=== PATIENT | male | born 1995 | race Hispanic/Latino ===

== ENCOUNTER 2020-03-11 21:39 | Emergency (ER) | payer SELFPAY ==
[2020-03-11 21:57] VITALS: TEMP 97.8; O2SAT 98
[2020-03-11] MEDS ORDERED: SODIUM CHLORIDE 0.9% 1000ML 1,000 ML IVS ONE (22:10)
[2020-03-11] MEDS ORDERED: PROMETHAZINE HCL INJ 25 MG in SODIUM CHLORIDE 0.9% 50ML 50 ML IVPB ONE (22:10)
[2020-03-11 23:36] VITALS: BP 120/81
--- NOTE | 2020-03-11 23:38 | ED.PDOC ---
History of Present Illness - General Chief Complaint: GI Problem Stated Complaint: nausea,vomiting Time Seen by Provider: 03/11/20 21:43 Source: patient Exam Limitations: no limitations - History of Present Illness Initial Comments: The patient is a 25-year-old male presented emergency room secondary to 3 to 4 days of nausea vomiting and mild diarrhea. No real abdominal pain. No fever. No vomiting of blood. No trauma. He has not been around anyone with similar symptoms. No history of any chronic intestinal issues. No history of chronic reflux. Timing/Duration: other Severity: moderate Improving Factors: nothing Worsening Factors: eating Associated Symptoms: loss of appetite, malaise, nausea/vomiting Allergies/Adverse Reactions: Allergies NO KNOWN ALLERGY Allergy (Unverified 12/03/14 21:48) Home Medications: Ambulatory Orders Ondansetron Odt [Zofran ODT] 4 mg PO Q8HR PRN #5 tab 03/11/20 Review of Systems - Review of Systems Constitutional: States: malaise EENTM: States: no symptoms reported Respiratory: States: no symptoms reported Cardiology: States: no symptoms reported Gastrointestinal/Abdominal: States: diarrhea, nausea, vomiting Genitourinary: States: no symptoms reported Musculoskeletal: States: no symptoms reported Skin: States: no symptoms reported Neurological: States: no symptoms reported Endocrine: States: no symptoms reported All other Systems: No Change from Baseline Past Medical History (General) - Patient Medical History Hx Seizures: No Hx Stroke: No Hx Dementia: No Hx Asthma: No Hx of COPD: No Hx Cardiac Disorders: No Hx Congestive Heart Failure: No Hx Pacemaker: No Hx Hypertension: No Hx Thyroid Disease: No Hx Diabetes: No Hx Gastroesophageal Reflux: No Hx Renal Disease: No Hx Cancer: No Hx of HIV: No Hx Hepatitis C: No Hx MRSA: No Surgical History: no surgical history - Vaccination History Hx Tetanus, Diphtheria Vaccination: Yes Hx Influenza Vaccination: No Hx Pneumococcal Vaccination: No - Social History Hx Tobacco Use: Yes Hx Chewing Tobacco Use: No Hx Alcohol Use: Yes Hx Substance Use: No Hx Substance Use Treatment: No Hx Depression: No Feels Threatened In Home Enviroment: No Feels Threatened In a Relationship: No Hx Physical Abuse: No Hx Emotional Abuse: No Hx Suspected Abuse: No - Triage Comment ED Triage Comment: The patient complained of nausea and vomiting for the past day and had chronic back pain for the past month. He did not appear in distsress but complained of feeling anxious. He denied shortness of breath and abdominal pain. He had no other noted complaints at the time of assessment. Family Medical History - Family History Mother Living Status: Still Living Physical Exam - Physical Exam General Appearance: Alert, Comfortable, No apparent distress Eye Exam: bilateral normal Ears, Nose, Throat: hearing grossly normal, normal pharynx Neck: full range of motion, supple Respiratory: lungs clear, normal breath sounds, no respiratory distress, no accessory muscle use Cardiovascular/Chest: normal peripheral pulses, regular rate, rhythm, no edema Peripheral Pulses: radial,right: 2+, radial,left: 2+ Gastrointestinal/Abdominal: non tender, soft Rectal Exam: deferred Back Exam: normal inspection Extremity: normal range of motion, no pedal edema, normal capillary refill 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, alert, normal mood/affect, oriented x 3 Skin Exam: normal color Comments: Vital Signs - 24 hr 03/11/20 03/11/20 03/11/20 21:52 22:40 23:00 Temperature 97.8 F Pulse Rate [ 85 82 80 Pulse Ox] Respiratory 18 14 14 Rate Blood Pressure 149/87 103/73 153/79 [Left Arm] O2 Sat by Pulse 98 98 98 Oximetry 03/11/20 23:35 Temperature Pulse Rate [ 73 Pulse Ox] Respiratory 14 Rate Blood Pressure 120/81 [Left Arm] O2 Sat by Pulse 98 Oximetry Progress - Progress Progress: 03/11/20 23:37 The patient is a 25-year-old male presented emergency room secondary to what appears to be most likely a viral gastroenteritis. He needs to keep h imself well-hydrated and maintain a bland diet. He will be written for Zofran for as needed use to control any further nausea or vomiting. He should expect symptoms to last another few days. ER warnings are given for any significant worsening. rex rogers [id number] - Results/Orders Results/Orders: Laboratory Results - last 24 hr 03/11/20 03/11/20 03/11/20 22:25 22:25 22:25 WBC 7.5 RBC 4.41 L Hgb 14.7 Hct 40.8 L MCV 92.4 MCH 33.3 H MCHC 36.1 RDW 12.9 Plt Count 169 MPV 7.0 L Absolute Neuts (auto) 5.80 Absolute Lymphs (auto) 1.10 Absolute Monos (auto) 0.60 Absolute Eos (auto) 0.00 Absolute Basos (auto) 0.00 Neutrophils % 77.4 Lymphocytes % 14.3 L Monocytes % 7.5 Eosinophils % 0.2 L Basophils % 0.6 Sodium 141 Potassium 3.9 Chloride 105 Carbon Dioxide 27 Anion Gap 12.9 BUN 10 Creatinine 0.92 BUN/Creatinine Ratio 10.9 Random Glucose 102 Serum Osmolality 280.5 Calcium 9.5 Magnesium 2.0 Total Bilirubin 1.6 H AST 31 ALT 19 Alkaline Phosphatase 47 Serum Total Protein 8.1 Albumin 5.1 Globulin 3.0 Albumin/Globulin Ratio 1.7 Amylase 105 H Lipase 23 Urine Color Urine Appearance Urine pH Ur Specific [place] Urine Protein Urine Glucose (UA) Urine Ketones Urine Blood Urine Nitrite Urine Bilirubin Urine Urobilinogen Ur Leukocyte Esterase Urine RBC Urine WBC Ur Epithelial Cells Urine Bacteria Urine Mucus Group A Strep Rapid Negative 03/11/20 23:14 WBC RBC Hgb Hct MCV MCH MCHC RDW Plt Count MPV Absolute Neuts (auto) Absolute Lymphs (auto) Absolute Monos (auto) Absolute Eos (auto) Absolute Basos (auto) Neutrophils % Lymphocytes % Monocytes % Eosinophils % Basophils % Sodium Potassium Chloride Carbon Dioxide Anion Gap BUN Creatinine BUN/Creatinine Ratio Random Glucose Serum Osmolality Calcium Magnesium Total Bilirubin AST ALT Alkaline Phosphatase Serum Total Protein Albumin Globulin Albumin/Globulin Ratio Amylase Lipase Urine Color Yellow Urine Appearance Clear Urine pH 7.5 Ur Specific [place] 1.020 Urine Protein 30 Urine Glucose (UA) Negative Urine Ketones Trace Urine Blood Negative Urine Nitrite Negative Urine Bilirubin Negative Urine Urobilinogen 0.2 Ur Leukocyte Esterase Negative Urine RBC 0 Urine WBC 0-1 Ur Epithelial Cells 0 Urine Bacteria 0 Urine Mucus Small Group A Strep Rapid Departure - Departure Clinical Impression: Viral gastroenteritis Disposition: Discharge to Home or Self Care Condition: Fair Departure Forms: ED Discharge - Pt. Copy, Patient Portal Self Enrollment Diet: bland diet Activity: increase activity as tolerated Referrals: Dennis Rahman MD [Primary Care Provider] - 1-2 Weeks Prescriptions: Ondansetron Odt [Zofran ODT] 4 mg PO Q8HR PRN #5 tab PRN Reason: Nausea--Moderate Home Medications: Ambulatory Orders Ondansetron Odt [Zofran ODT] 4 mg PO Q8HR PRN #5 tab 03/11/20 Additional Instructions: The patient is a 25-year-old male presented emergency room secondary to what appears to be most likely a viral gastroenteritis. He needs to keep himself well-hydrated and maintain a bland diet. He will be written for Zofran for as needed use to control any further nausea or vomiting. He should expect symptoms to last another few days. ER warnings are given for any significant worsening.
== END 2020-03-11 23:44 | disposition home or self-care (01) ==
LOC: ER 21:39
DX: A08.4 Viral intestinal infection, unspecified (principal); Z87.891 Personal history of nicotine dependence
CPT/HCPCS: 36415; 80053; 81001; 82150; 83690; 83735; 85025; 87070; 87880; A4216; J2550; J7030